=== PATIENT | male | born 1960 | race Caucasian/White ===

== ENCOUNTER → 2021-06-25 | Outpatient (CLI) | payer OTHER ==
[~2021-06-25] MED LIST: AMLO-150 PO; ANAS1TAB49 PO; HCG250DI IM; THYR60TA4 PO; VITAMIN C PO; VITAMIN D3 PO; ZINC PO
[2021-06-25 11:07] LABS: MICROSCOPIC INDICATED
== END | disposition home or self-care (01) ==
LOC: STAR 10:03
PROVIDERS: ATTEND Urology
DX: Z01.818 Encounter for other preprocedural examination (principal); N40.1 Benign prostatic hyperplasia with lower urinary tract symptoms; Z20.822 Contact with and (suspected) exposure to COVID-19
CPT/HCPCS: 81001; 87086; 93005; U0003; U0005; 87077; 87186

== ENCOUNTER 2021-07-01 08:32 | Observation (INO) | payer OTHER ==
[~2021-07-01] VITALS: Ht 190.5 cm; Wt 95.8 kg
[2021-07-01 09:10] VITALS: BP 152/93
[2021-07-01] MEDS ORDERED: FENTANYL PF 100 MCG/2ML ONE (09:15)
[2021-07-01] MEDS ORDERED: MIDAZOLAM 1 MG/ML, 2ML ONE (09:15)
[2021-07-01] MEDS ORDERED: PROPOFOL 10 MG/ML, 20ML ONE (09:16)
[2021-07-01] MEDS ORDERED: CEFAZOLIN 1,000 MG ONE ×2 (09:17)
[2021-07-01] MEDS ORDERED: LIDOCAINE-MPF 2% ,5ML ONE (09:17)
[2021-07-01] MEDS ORDERED: NITR100C56 PO (09:18)
[2021-07-01] MEDS ORDERED: CHLORHEXIDINE 15 ML UDC PO ONE (09:30)
[2021-07-01] MEDS: LACTATED RINGERS 1,000 ML IV SCH ×2 (09:46→13:56)
[2021-07-01] MEDS ORDERED: ACETAMINOPHEN 325 MG TABLET PO PRN (10:00)
[2021-07-01] MEDS ORDERED: OXYcodone 5 MG/5 ML ORAL.SOL UDC PO PRN (10:00)
[2021-07-01] MEDS ORDERED: hydrALAzine 20 MG/ML, 1ML IV PRN (10:00)
[2021-07-01] MEDS ORDERED: FENTANYL PF 100 MCG/2ML IV PRN (10:00)
[2021-07-01] MEDS ORDERED: HYDROmorphone 1 MG/ML, 1ML INJ IVPush PRN (10:00)
[2021-07-01] MEDS ORDERED: DIAZEPAM 5 MG/ML, 2ML IVPush PRN (10:00)
[2021-07-01] MEDS ORDERED: ONDANSETRON 2MG/ML, 2ML IVPush PRN (10:00)
[2021-07-01] MEDS ORDERED: LABETALOL 5MG/ML, 20ML IV PRN (10:00)
[2021-07-01] MEDS ORDERED: MEPERIDINE/PF 25MG/0.5ML IVPush PRN (10:00)
[2021-07-01] MEDS ORDERED: DEXAMETHASONE 4 MG/ML, 1ML ONE (10:28)
[2021-07-01] MEDS ORDERED: ONDANSETRON 2MG/ML, 2ML ONE (10:28)
[2021-07-01] MEDS ORDERED: ONDANSETRON 2MG/ML, 2ML IV PRN (11:30)
[2021-07-01] MEDS ORDERED: OXYcodone/APAP 5/325MG TABLET PO PRN (11:30)
[2021-07-01] MEDS: NITROFURANTOIN (MACROBID) 100 MG CAPSULE PO SCH (20:02)
[2021-07-01] MEDS: OXYBUTYNIN CHLORIDE 5 MG TABLET PO SCH (20:02)
[2021-07-01] MEDS: AMLODIPINE 5 MG TABLET PO SCH (20:02)
[2021-07-01 20:12] VITALS: BP 142/78
[2021-07-01 20:15] VITALS: BP 142/78
[2021-07-02 00:09] VITALS: BP 108/71
[2021-07-02 04:16] VITALS: BP 110/68
[2021-07-02] MEDS ORDERED: THYROID 30 MG TABLET PO SCH (06:00)
[2021-07-02 08:00] VITALS: BP 121/77
[2021-07-02] MEDS: NITROFURANTOIN (MACROBID) 100 MG CAPSULE PO SCH (09:00)
[2021-07-02] MEDS: OXYBUTYNIN CHLORIDE 5 MG TABLET PO SCH (09:00)
[2021-07-02] MEDS: AMLODIPINE 5 MG TABLET PO SCH (09:00)
[2021-07-02] MEDS ORDERED: ANASTROZOLE 1 MG TABLET PO SCH (09:00)
[2021-07-02 13:50] VITALS: BP 122/68
== END 2021-07-02 15:00 | disposition home or self-care (01) ==
LOC: OUT 08:32 → ORIP 11:15 → 4NE 13:49
PROVIDERS: ADMIT Urology; ATTEND Urology
DX: N40.1 Benign prostatic hyperplasia with lower urinary tract symptoms (principal); R31.9 Hematuria, unspecified; I10 Essential (primary) hypertension; E03.9 Hypothyroidism, unspecified; Z79.899 Other long term (current) drug therapy
CPT/HCPCS: 52601; 88305; G0378; J0690; J1100; J2250; J2405; J2704; J3010; J3490; J7120